=== PATIENT | female | born 1965 | race Caucasian/White ===

== ENCOUNTER 2020-09-17 14:16 | Emergency (ER) | payer OTHER ==
[2020-09-17 14:49] LABS: BASOPHIL 0.7 % (0-2); EOSINOPHIL 0.7 % (0-5); HCT 42.8 % (37.0-47.0); HGB 14.2 g/dl (12.5-16.0); LYMPHOCYTE 32.7 % (15-48); MCH 29.8 pg (25.0-31.0); MCHC 33.2 g/dL (32.0-36.0); MCV 89.9 fL (78.0-100.0); MONOCYTE 6.3 % (0-12); MPV 11.5 fL (6.0-9.5); NEUTROPHIL 59.3 % (41-80); NRBC 0; PLT 179 K/uL (150-400); RBC 4.76 M/uL (4.20-5.40); RDW 12.7 % (11.5-14.0); WBC 5.9 K/uL (4.0-10.5)
[2020-09-17 14:54] LABS: INR 0.97 (0.9-1.2); PROTHROMBIN TIME 12.2 SECONDS (11.4-13.6); PTT 33.3 SECONDS (22.2-34.7)
[2020-09-17 15:00] LABS: ALBUMIN 3.9 g/dL (3.4-5.0); BILIRUBIN - TOTAL 0.3 mg/dL (0.2-1.0); BUN/CREAT RATIO (CALC) 17.9 RATIO; CREATININE 0.67 mg/dL (0.51-0.95); GLOBULIN (CALCULATION) 3.2 g/dL; POTASSIUM 3.8 mmol/L (3.5-5.1); TOTAL PROTEIN 7.1 g/dL (6.4-8.2)
== END 2020-09-17 17:15 | disposition home or self-care (01) ==
LOC: FER 14:16
PROVIDERS: Internal Medicine
DX: R07.2 Precordial pain (principal)
CPT/HCPCS: 36415; 71045; 80053; 84484; 85025; 85379; 85610; 85730; 93005